=== PATIENT | female | born 1950 | race Caucasian/White ===

== ENCOUNTER 2022-05-01 10:15 | Emergency (ER) | payer OTHER ==
[~2022-05-01] VITALS: Ht 167.6 cm; Wt 76.7 kg
[2022-05-01 10:21] VITALS: BP_SYST 156
[2022-05-01 11:58] LABS: BASOPHILS % (AUTO) 0.4 % (0.0-2.0); EOSINOPHILS # (AUTO) 0.1 K/uL (0.0-0.4); EOSINOPHILS % (AUTO) 1.3 % (0.0-4.0); HEMATOCRIT 36.7 % (36-48); HEMOGLOBIN 12.2 g/dL (12.0-16.0); LYMPHOCYTES # (AUTO) 0.9 K/uL (1.0-5.5); LYMPHOCYTES % (AUTO) 16.8 % (20.5-51.5); MEAN CORPUSCULAR HEMOGLOBIN 30 pg (27-31); MEAN CORPUSCULAR HGB CONC 33 % (32-36); MEAN CORPUSCULAR VOLUME 89 fL (79.0-98.0); MONOCYTES # (AUTO) 0.4 K/uL (0.0-1.0); MONOCYTES % (AUTO) 7.7 % (1.7-9.3); NEUTROPHILS # (AUTO) 3.7 K/uL (1.8-7.7); NEUTROPHILS % (AUTO) 73.8 % (40.0-70.0); PLATELET COUNT (AUTO) 154 K/uL (130-430); RED BLOOD CELL COUNT(AUTO) 4.12 MIL/uL (4.2-6.2); RED CELL DISTRIBUTION WIDTH 14.4 % (9.0-15.0); WHITE BLOOD COUNT (AUTO) 5.1 K/uL (4.8-10.8)
[2022-05-01] MEDS ORDERED: BARIUM SULFATE 135 ML SUSP.RECON (E-Z-HD) PO ONE (12:00)
[2022-05-01 12:18] LABS: ANION GAP 7 (5-15); CALCIUM 8.9 mg/dL (8.4-11.0); CHLORIDE 101 mmol/L (98-107); CREATININE 0.65 mg/dL (0.55-1.30); GLUCOSE 317 mg/dL (70-99); UREA NITROGEN, BLOOD 17 mg/dL (8-21)
[2022-05-01 12:19] LABS: GFR AFRICAN AMERICAN 116 mL/min (>90)
[2022-05-01 12:32] LABS: ALANINE AMINOTRANSFERASE 30 U/L (12-78); ALBUMIN 3.5 g/dL (3.4-4.8); ASPARTATE AMINOTRANSFERASE 27 U/L (10-37); TOTAL BILIRUBIN 0.6 mg/dL (0.0-1.0)
[2022-05-01 12:46] LABS: ACETONE, SERUM NEGATIVE (NEGATIVE)
[2022-05-01 14:31] VITALS: BP_SYST 156
[2022-05-01] MEDS ORDERED: VIS25 PO (20:14)
== END 2022-05-01 14:31 | disposition home or self-care (01) ==
LOC: SED 10:15
DX: K22.2 Esophageal obstruction (principal); R06.02 Shortness of breath; R07.9 Chest pain, unspecified; Z79.899 Other long term (current) drug therapy
CPT/HCPCS: 36415; 74220-TC; 80053; 82009; 84484; 85025; 93005; 99283; 99284